=== PATIENT | female | born 1995 | race Caucasian/White ===

== ENCOUNTER 2019-10-25 15:28 | Day surgery (SDC) | payer BC, SELFPAY ==
[~2019-10-25 15:28] MED LIST: Dexamethasone 20 MG/5 ML VIAL ONE; Glycopyrrolate 0.2 MG/ML 5 ML SYRINGE ONE; Lidocaine 1% PF 5 ML VIAL ONE; Ondansetron PF 4 MG/2 ML Vial ONE; PROPOFOL 200 MG/20 ML VIAL ONE; Rocuronium Bromide 10 MG/ML (10ML VIAL) ONE; Succinylcholine Chloride 20 MG/ML 10 ml SYRINGE FS ONE
[2019-10-25] MEDS ORDERED: Acetaminophen 500 MG TAB ONE ×2 (15:41→15:44)
[2019-10-25] MEDS ORDERED: Piperacillin/Tazobactam 3.375 GM VIAL ONE (15:41)
[2019-10-25] MEDS ORDERED: Bupivacaine PF 0.5% 30 ML VIAL ONE (15:42)
[2019-10-25] MEDS ORDERED: Ketorolac Tromethamine 30 MG/ML VIAL ONE (15:42)
[2019-10-25] MEDS ORDERED: Fentanyl 100 MCG/2 ML VIAL ONE ×2 (15:42→16:10)
[2019-10-25] MEDS ORDERED: Sodium Chloride 0.9% 100 ML ONE (15:42)
[2019-10-25] MEDS ORDERED: Lidocaine 1% w/Epinephrine 1:100K 20 ML VIAL ONE (15:42)
[2019-10-25] MEDS ORDERED: Scopolamine 1.5 mg/72 hour Patch ONE (15:42)
--- NOTE | 2019-10-25 16:08 | HP ---
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 Hurts, worse with movement. In fact, she slept on the floor and could not move. She presented to [facility] Emergency Room. CAT scan verified appendicitis. White count slightly elevated. She was transferred here for appendectomy. SOCIAL HISTORY: Tobacco, 1-1/2 packs per day, more or less. Alcohol, socially. ALLERGIES: LATEX. PAST MEDICAL HISTORY: Noncontributory. PAST SURGICAL HISTORY: [facility] teeth extraction. REVIEW OF SYSTEMS: Noncontributory. FAMILY HISTORY: Noncontributory. PHYSICAL EXAMINATION: VITAL SIGNS: 70 kg, 156 pounds, 55 inches, BMI 36, blood pressure 150/107, temperature 99.8 degrees. HEAD, EYES, EARS, NOSE, AND THROAT: Unremarkable. LUNGS: Clear to auscultation. CARDIAC: Regular rate and rhythm without murmur or gallop. ABDOMEN: Soft. Tenderness in right lower quadrant. No guarding or rebound. EXTREMITIES: Unremarkable. LABORATORY DATA: White count 15, hemoglobin 14. ASSESSMENT AND PLAN: Acute appendicitis. We would recommend laparoscopic video appendectomy. Risks of infection, bleeding, visceral injury, reoperation. Discussed questions answered. Job ID: [id number]
[2019-10-25] MEDS ORDERED: Midazolam HCl 2 mg/2 ml Vial ONE (16:10)
[2019-10-25] MEDS ORDERED: HYDROcodone/Acetaminophen 5/325 mg Tablet ONE (17:35)
--- NOTE | 2019-10-25 21:23 | OP ---
DATE OF PROCEDURE: 10/25/2019 PREOPERATIVE DIAGNOSIS: Acute appendicitis. POSTOPERATIVE DIAGNOSIS: Acute appendicitis. PROCEDURE PERFORMED: Laparoscopic video appendectomy. ANESTHESIA: General, local 0.5% Marcaine 30 mL mixed with 2% Xylocaine 20 mL, total volume used. FINDINGS: Acute appendicitis, early. DESCRIPTION OF PROCEDURE: The patient was taken to the operating room, where under general anesthesia, Dong catheter placed at the beginning of procedure and removed at the end, abdomen was prepared with ChloraPrep and draped in routine fashion. Infraumbilical incision made, pneumoperitoneum to 15 mmHg was obtained with a Veress needle, replacing with a 5 port, video laparoscope inserted. Right lateral subcostal incision made and a 5 port placed. Suprapubic incision made and a 12 port placed. Appendix was acutely inflamed. The mesoappendix was taken down with the LigaSure. Stump of the appendix, cecal stump divided with Endo blue load JORGE stapler. Staple line hemostasis gained with clips. Good hemostasis noted. The appendix was removed, submitted to Pathology. Irrigant and pneumoperitoneum evacuated. Suprapubic fascia was approximated with 0 Vicryl. Skin incision was approximated with interrupted subdermal 4-0 Monocryl and [place]man glue applied. Job ID: [id number]
== END 2019-10-25 18:28 | disposition home or self-care (01) ==
LOC: SDC/OP 15:28
PROVIDERS: ATTEND Specialist
PROC: 0DTJ4ZZ Resection of Appendix, Percutaneous Endoscopic Approach (ICD-10-PCS; principal; 2019-10-25)
DX: K35.80 Unspecified acute appendicitis (principal); F17.210 Nicotine dependence, cigarettes, uncomplicated; Z91.040 Latex allergy status
CPT/HCPCS: 88304; J1100; J1885; J2250; J2405; J2543; J2704; J3010; J3490; S0020

== ENCOUNTER 2021-11-21 13:51 | Outpatient (CLI) | payer BC | END 2021-11-21 13:52 | disposition home or self-care (01) | LOC: BICRAD 13:51 | PROVIDERS: ATTEND Family Medicine | DX: M51.9 Unspecified thoracic, thoracolumbar and lumbosacral intervertebral disc disorder (principal) | CPT/HCPCS: 72070 ==

== ENCOUNTER 2022-04-13 12:22 | Outpatient (CLI) | payer BC | END 2022-04-13 12:23 | disposition home or self-care (01) | LOC: TBSIIMAG 12:22 | PROVIDERS: ATTEND Surgery | DX: M51.16 Intervertebral disc disorders with radiculopathy, lumbar region (principal); M51.35 Other intervertebral disc degeneration, thoracolumbar region; M47.26 Other spondylosis with radiculopathy, lumbar region; K60.2 Anal fissure, unspecified | CPT/HCPCS: 72148 ==

== ENCOUNTER 2022-06-15 08:33 | Outpatient (CLI) | payer BC ==
[2022-06-15 09:25] LABS: Hemoglobin 13.6 g/dL (12.0-15.5); Mean Corpuscular HGB CONC 32.7 g/dL (32.0-36.0); Mean Corpuscular Hemoglobin 29.6 pg (27.0-33.0); Mean Corpuscular Volume 90.4 fl (81.6-98.3); Mean Platelet Volume 9.7 fl (7.4-10.4); Platelet Count 297 10x3/uL (150-450); RBC Distribution Width 13.3 % (11.5-14.5); White Blood Cell (WBC) Count 8.8 10x3/uL (3.5-10.5)
[2022-06-15 10:00] LABS: BHCG - Serum Negative (NEGATIVE); Pregs Control Background? CLEAR/WHITE (CLR/WHITE); Pregs Control Bar Appear? YES (CONTROL BAR)
[2022-06-15 10:17] LABS: PTT 30.8 sec (22.0-33.0); Prothrombin Time 10.7 sec (9.5-12.1)
[2022-06-15 10:31] LABS: Anion Gap 15 mmol/L (10-20); BUN (Urea Nitrogen) 9 mg/dL (7.0-18.7); Calc. Creatinine Clearance 0 mL/min (70-130); Calcium 9.5 mg/dL (7.8-10.44); Carbon Dioxide 25 mmol/L (22-29); Chloride 101 mmol/L (98-107); Estimated GFR 100; Glucose 66 mg/dL (70-105); Sodium 137 mmol/L (136-145)
== END 2022-06-15 08:34 | disposition home or self-care (01) ==
LOC: LABBT 08:33
PROVIDERS: ATTEND Surgery
DX: Z01.818 Encounter for other preprocedural examination (principal); M51.16 Intervertebral disc disorders with radiculopathy, lumbar region
CPT/HCPCS: 80048; 84703; 85027; 85610; 85730; 93005; 93010

== ENCOUNTER 2022-06-18 05:45 | Observation (INO) | payer BC ==
[2022-06-16 10:46] VITALS: BMI 24.1
[2022-06-18] MEDS ORDERED: Vancomycin 1 GM VIAL ONE (06:25)
[2022-06-18] MEDS ORDERED: Thrombin 5000 UNITS/5 ML VIAL ONE (06:25)
[2022-06-18] MEDS ORDERED: Dexmedetomidine 200 MCG/2 ML VIAL ONE (06:42)
[2022-06-18] MEDS ORDERED: Fentanyl 250 MCG/5 ML VIAL ONE (06:42)
[2022-06-18] MEDS ORDERED: Sodium Chloride 0.9% 100 ML ONE (07:15)
[2022-06-18] MEDS ORDERED: CEFAZOLIN 2 GM VIAL ONE (07:15)
[2022-06-18] MEDS ORDERED: Midazolam HCl 2 mg/2 ml Vial ONE (07:18)
[2022-06-18] MEDS ORDERED: Dexamethasone 20 MG/5 ML VIAL ONE (07:36)
[2022-06-18] MEDS ORDERED: Ondansetron PF 4 MG/2 ML Vial ONE (07:36)
[2022-06-18] MEDS ORDERED: PROPOFOL 200 MG/20 ML VIAL ONE (07:36)
[2022-06-18] MEDS ORDERED: NEOSTIGMINE 3 MG/3 ML SYR 3 MG/3 ML SYRINGE ONE (07:36)
[2022-06-18] MEDS ORDERED: Ketorolac Tromethamine 30 MG/ML VIAL ONE (07:36)
[2022-06-18] MEDS ORDERED: GLYCOPYRROLATE/PF 0.2 MG/ML VIAL ONE (07:36)
[2022-06-18] MEDS ORDERED: Rocuronium Bromide 10 MG/ML (10ML VIAL) ONE (07:36)
[2022-06-18] MEDS ORDERED: Ondansetron HCl/PF 4 MG/2 ML Vial IVP PRN (09:11)
[2022-06-18] MEDS ORDERED: Promethazine HCl 25 MG/ML VIAL IM PRN (09:11)
[2022-06-18] MEDS ORDERED: PACU-Morphine 4MG/ML VIAL SLOW IVP PRN (09:11)
[2022-06-18] MEDS ORDERED: HYDROmorphone 2 MG/ML VIAL SLOW IVP PRN (09:11)
[2022-06-18] MEDS ORDERED: Morphine Sulfate 2 MG/ML SYRINGE SLOW IVP PRN (09:11)
[2022-06-18] MEDS ORDERED: diphenhydrAMINE 25 MG CAP PO PRN (09:22)
[2022-06-18] MEDS ORDERED: Acetaminophen 325 MG TAB PO PRN (09:22)
[2022-06-18] MEDS ORDERED: traMADol HCl 50 MG TAB PO PRN (09:22)
[2022-06-18] MEDS ORDERED: Ondansetron PF 4 MG/2 ML Vial IVP PRN (09:22)
[2022-06-18] MEDS ORDERED: Lorazepam 1 MG TAB PO PRN (09:28)
[2022-06-18] MEDS: Sodium Chloride 0.9% 1,000 ML IV SCH ×2 (10:30→23:09)
[2022-06-18] MEDS: tiZANidine HCl 4 MG TAB PO PRN ×2 (10:30→23:09)
[2022-06-18] MEDS: Morphine 2 MG/ML VIAL SLOW IVP PRN ×3 (10:41→20:08)
[2022-06-18] MEDS: HYDROcodone/Acetaminophen 7.5/325 mg Tablet PO PRN ×2 (11:59→17:54)
[2022-06-18] MEDS: CEFAZOLIN 2 GM in Sodium Chloride 0.9% 100 ML IVPB SCH ×2 (14:33→23:09)
[2022-06-18] MEDS: Acetaminophen/Codeine 30-300mg Tablet PO PRN ×2 (14:34→20:07)
[2022-06-19] MEDS: HYDROcodone/Acetaminophen 7.5/325 mg Tablet PO PRN ×3 (00:27→12:31)
[2022-06-19] MEDS: Morphine 2 MG/ML VIAL SLOW IVP PRN (00:32)
[2022-06-19] MEDS: Acetaminophen/Codeine 30-300mg Tablet PO PRN ×2 (02:20→09:24)
[2022-06-19] MEDS ORDERED: Ketorolac Tromethamine 30 MG/ML VIAL IVP SCH (08:00)
[2022-06-19] MEDS ORDERED: Diazepam 5 MG TAB PO SCH (08:00)
[2022-06-19] MEDS: Sodium Chloride 0.9% 1,000 ML IV SCH (11:47)
[2022-06-19 11:55] VITALS: BP 114/79; TEMP 98.7
== END 2022-06-19 13:11 | disposition home or self-care (01) ==
LOC: SDC 05:45 → SURG A 11:04
PROVIDERS: ADMIT Surgery; ATTEND Surgery
PROC: 0SB20ZZ Excision of Lumbar Vertebral Disc, Open Approach (ICD-10-PCS; principal; 2022-06-18)
PROC: 01NB0ZZ Release Lumbar Nerve, Open Approach (ICD-10-PCS; 2022-06-18)
DX: M51.16 Intervertebral disc disorders with radiculopathy, lumbar region (principal); Z79.899 Other long term (current) drug therapy; Z91.040 Latex allergy status
CPT/HCPCS: J1100; J1885; J2250; J2272; J2405; J2704; J3010; J3370; J3490; J7050

== ENCOUNTER 2023-12-13 14:45 | Outpatient (CLI) | payer BC | END 2023-12-13 14:46 | disposition home or self-care (01) | LOC: SCSMRI 14:45 | PROVIDERS: ATTEND Nurse Practitioner Family | DX: M51.16 Intervertebral disc disorders with radiculopathy, lumbar region (principal); M48.061 Spinal stenosis, lumbar region without neurogenic claudication; M48.07 Spinal stenosis, lumbosacral region | CPT/HCPCS: 72158 ==

== ENCOUNTER 2025-01-20 14:28 | Outpatient (CLI) | payer BC | END 2025-01-20 14:29 | disposition home or self-care (01) | LOC: ULT 14:28 | DX: R10.20 Pelvic and perineal pain unspecified side (principal) | CPT/HCPCS: 76856 ==